=== PATIENT | male | born 1935 | race Caucasian/White ===

== ENCOUNTER 2016-08-27 14:30 | Inpatient (IN) | payer MEDICARE, BC ==
[~2016-08-27] VITALS: Ht 177.8 cm; Wt 76.2 kg
--- NOTE | 2016-08-27 14:46 | NUR ---
PT TO ROOM FOR TREATMENT IN STABLE CONDITION
[2016-08-27] MEDS ORDERED: PLAVIX75 MG PO (15:04)
[2016-08-27] MEDS ORDERED: ATENOLOL25 MG PO (15:04)
[2016-08-27] MEDS ORDERED: LIPITOR40 M1 PO (15:05)
[2016-08-27] MEDS ORDERED: FINASTERIDE5 MG PO (15:05)
[2016-08-27] MEDS ORDERED: TAMSULOSIN HCL0.4 MG PO (15:06)
[2016-08-27] MEDS ORDERED: BENAZEPRIL20 M1 PO (15:06)
[2016-08-27] MEDS ORDERED: ISOSORB MONO30 MG PO (15:06)
[2016-08-27] MEDS ORDERED: MYCOPHENOLAT500 MG PO (15:07)
[2016-08-27] MEDS ORDERED: ASPIRIN81 MG PO (15:07)
[2016-08-27] MEDS ORDERED: AMLODIPINE5 MG PO (15:08)
[2016-08-27] MEDS ORDERED: FOSAMAX PLUS PO (15:13)
[2016-08-27 15:20] LABS: ALBUMIN 4.3 g/dL (3.2-5.0); BILIRUBIN, TOTAL 0.9 mg/dL (0.0-1.4); CALCIUM 9.1 mg/dL (8.4-10.2); CREATININE 1.7 mg/dL (0.7-1.3); POTASSIUM 4.5 mmol/l (3.5-5.1); TOTAL PROTEIN 7.2 g/dL (6.3-8.2)
[2016-08-27 15:23] LABS: HEMATOCRIT 36.4 % (39.0-50.0); HEMOGLOBIN 11.9 g/dl (14.0-18.0); IMMATURE GRANULOCYTES 0.4 % (0.0-1.0); MEAN CELL VOLUME 87.9 fL CALC (80.0-100.0); MEAN CORPUSCULAR HGB 28.7 pG CALC (26.0-32.0); MEAN CORPUSCULAR HGB CONC 32.7 g/L CALC (32.0-36.0); NEUT# 5.13 thou/uL (1.82-7.42); RED BLOOD COUNT 4.14 mill/uL (4.70-6.10); RED CELL DISTRI WIDTH 15.1 % (11.5-15.5)
--- NOTE | 2016-08-27 15:40 | NUR ---
PT CONTINUES TO REST QUIETLY ON STRETCHER. AT BEDSIDE. NO RESP. DISTRESS NOTED. RESP. EVEN AND UNLABORED. CALL LIGHT WITHIN REACH.
--- NOTE | 2016-08-27 16:30 | NUR ---
PT CONTINUES TO REST QUIETLY, REMAINS AT BEDSIDE. NO RESP. DISTRESS NOTED. CALL LIGHT WITHIN REACH.
--- NOTE | 2016-08-27 17:05 | NUR ---
PT STATES "IV IS BURINING", IV SITE INFILTRATED, IV CATHETER REMOVED, DRESSING APPLIED. NEW SITE IN RAC. IV FLUIDS CONNECTED TO INFUSE PER MD'S ORDER. REMAINS AT BEDSIDE. NO CHANGE IN ASSESSMENT. PT STATES HE DOES NOT HAVE PAIN LONG HE LAYS STILL. WILL CONTINUE TO MONITOR. CALL LIGHT WITHIN REACH.
--- NOTE | 2016-08-27 18:15 | NUR ---
INFORMED PT THAT HE WILL BE GOING FOR A CT SCAN OF THE ABD. PT VERBALIZED UNDERSTANDING OF TEACHING. REMAINS AT BEDSIDE. NO RESP. DISTRESS NOTED. RESP EVEN AND UNLABORED. WAITING FURTHER TESTING. CALL LIGHT WITHIN REACH.
[2016-08-27 18:17] LABS: URINE BILIRUBIN - DIPSTICK NEGATIVE (NEGATIVE); URINE BLOOD DIPSTICK LARGE (NEGATIVE); URINE COLOR YELLOW; URINE GLUCOSE - DIPSTICK NEGATIVE (NEGATIVE); URINE KETONE NEGATIVE (NEGATIVE); URINE LEUK ESTERASE TRACE (NEGATIVE); URINE NITRITE - DIPSTICK NEGATIVE (Negative); URINE PROTEIN - DIPSTICK TRACE mg/dL (NEG-TRACE); URINE SPECIFIC GRAVITY 1.025; URINE UROBILINOGEN - DIPSTICK 0.2 E.U./dL (0.2)
[2016-08-27 18:24] LABS: URINE CLARITY SLIGHT CLOUDY
[2016-08-27 18:26] LABS: URINE RBC 25-50 RBC/hpf (0-5)
--- NOTE | 2016-08-27 18:46 | NUR ---
REPORT GIVEN TO DEJAH PANIAGUA.
--- NOTE | 2016-08-27 18:47 | NUR ---
RECEIVED REPORT FROM DEJAH WHITEHEAD AND UPDATED PT AND ON PLAN OF CARE. PT STILL WAITING CT ABD/PELVIS
[2016-08-27 19:49] LABS: MYOGLOBIN 107 ng/mL (0 - 121)
--- NOTE | 2016-08-27 19:50 | NUR ---
DR MORRIS IN TO RE-EVALUATE PT.
--- NOTE | 2016-08-27 20:17 | NUR ---
Admission Note Report Given to: DEJAH KOLB Transported by: X Wheelchair Stretcher Transported with: X Nurse Transporter Patent IV [id number] Sheet Rock Hanger
--- NOTE | 2016-08-27 20:17 | NUR ---
REPORT GIVEN TO CORTES
--- NOTE | 2016-08-27 20:30 | NUR ---
PATIENT ARRIVED TO THE FLOOR FROM THE ED VIA WHEELCHAIR ACCOMPANIED BY SPOUSE AND ED NURSE. ORIENTATE PATIENT TO ROOM AND CALL LIGHT SYSYEM. DENIES PAIN. CALL LIGHT IN REACH, BED LOCKED AND IN LOW POSITION. ADVISED PATIENT TO CALL FOR ASSISTANCE IF NEEDED. PATIENT VERBALIZED UNDERSTANDING.
[2016-08-27 21:00] VITALS: BP 112/67
--- NOTE | 2016-08-28 | NUR ---
PATIENT IS RESTING COMFORTABLY WITH EYES CLOSED AND APPEARS NOT TO BE IN ANY APPARENT DISTRESS.
[2016-08-28 04:00] VITALS: BP 109/54
[2016-08-28 05:15] LABS: ANION GAP 14 (6-22 (CALC)); BUN 27 mg/dL (8-23); BUN/CREATININE RATIO 21 (12-20 (CALC)); CALCIUM 8.8 mg/dL (8.4-10.2); CARBON DIOXIDE 24 mmol/l (22-30); CHLORIDE 106 mmol/l (95-108); CREATININE 1.3 mg/dL (0.7-1.3); GFR 53 ML/MIN (>=60 (CALC)); GFR FOR AFR.AMER. > 60 ML/MIN (>=60 (CALC)); GLUCOSE 95 mg/dL (82-115); MAGNESIUM 1.8 mg/dL (1.6-2.3); POTASSIUM 3.8 mmol/l (3.5-5.1); SODIUM 140 mmol/l (137-146)
[2016-08-28 07:11] VITALS: BP 117/67
--- NOTE | 2016-08-28 07:27 | NUR ---
PT IN SUPINE POSITION; C/O MID ABD PRESSURE, DOES NOT WANT PAIN MED AT THIS TIME; ENCOURAGE USE OF CALL LIGHT IF ANY ASSISTANCE IS NEEDED; WILL CONTINUE TO MONITOR.
--- NOTE | 2016-08-28 08:10 | NUR ---
PT IN CHAIR TALKING ON PHONE; TOLERATING CLEAR LIQ DIET WELL; CALL JOE WITHIN REACH; WILL CONTINUE TO MONITOR.
--- NOTE | 2016-08-28 11:56 | NUR ---
PT SITTING IN CHAIR VISITING WITH SPOUSE; NO COMPLAINTS OR CONCERNS VOICED; CALL JOE WITHIN REACH; WILL CONTINUE TO MONITOR.
--- NOTE | 2016-08-28 14:49 | NUR ---
Patient has recieved PPSV23 vaccine 02/18/12. Pt is >67 years old and >1 year has passed since he received the PPSV23. Pt is eligible for PCV13 vaccine. Counseled patient on the purpose of PCV13. Order has been placed for PCV13 vaccine. Patient did not have any questions regarding vaccine or any other medications. Patient will call pharmacy if any future questions arise.
[2016-08-28 15:33] LABS: C. DIFFICILE TOXIN A&B NEGATIVE (NEGATIVE)
[2016-08-28 15:54] VITALS: BP 105/57
[2016-08-28 19:20] VITALS: BP 103/54
--- NOTE | 2016-08-28 19:41 | NUR ---
PATIENT SITTING UP IN RECLINER WITH AT SIDE. PATIENT IS ALERT AND ORIENTEDX3. PATIENT WITH NO COMPLAINTS AT THIS TIME. PATIENT STATES THAT HE ATE SOLIDS TONIGHT FOR DINNER AND TOLERATED THAT WELL SO FAR. PATIENT WITH IV SITE TO LEFT AC WITH IVF D5LR PATENT AND INFUSING AT 125CC/HR. SITE APPEARS HEALTHY AT THIS TIME. 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 ABD IS SOFT WITH BS PRESENT. LUNGS ARE CLEAR. SAFETY PRECAUTIONS REINFORCED. CALL LIGHT IN REACH. WILL CONT TO MONITOR.
--- NOTE | 2016-08-28 19:41 | NUR ---
PATIENT SITTING UP IN RECLINER WITH AT SIDE. PATIENT IS ALERT AND ORIENTEDX3. NO COMPLAINTS AT THIS TIME. PATIENT STATES THAT ATE SOLIDS FOR DINNER AND TOLERATED THAT WELL SO FAR, PATIENT WITH IV SITE TO LEFT AC WITH IVF D5LR PATENT AND INFUISNG AT 100CC/HR. SITE APPEARS HEALTHY AT THIS TIME. PATIENT WITH COLOSTOMY WHICH HE DOES SELF CARE AND STATES THAT HIS STOOLS HAVE CONT TO BE BROWN AND WATERY. ABD IS SLIGHTLY DISTENDED WITH BS PRESENT. LUNGS ARE CLEAR. SAFETY PRECAUTIONS REINFORCED. CALL LIGHT IN REACH. WILL CONT TO MONITOR.
--- NOTE | 2016-08-28 23:46 | NUR ---
PATIENT RESTING IN BED AT THIS TIME WITH NO COMPLAINTS. IVF PATENT AND INFUSING AT 125CC/HR ORDERED. CALL LIGHT IN REACH. WILL CONT TO AMY.
--- NOTE | 2016-08-28 23:53 | NUR ---
PATIENT RESTING IN BED AT THIS TIME WITH NO COMPLAINTS. CALL LIGHT IN REACH. WILL CONT TO MONITOR.
[2016-08-29 03:47] VITALS: BP 126/61
--- NOTE | 2016-08-29 03:48 | NUR ---
PATIENT RESTING IN BED AT THIS TIME WITH NO COMPLAINTS. VS TAKEN AND RECORDED. IVF ORDERED AT 100CC/HR. CALL LIGHT IN REACH. WILL CONT TO MONITOR.
[2016-08-29 05:16] LABS: HEMATOCRIT 30.2 % (39.0-50.0); HEMOGLOBIN 10.1 g/dl (14.0-18.0); IMMATURE GRANULOCYTES 0.6 % (0.0-1.0); MEAN CORPUSCULAR HGB 29.1 pG CALC (26.0-32.0); MEAN CORPUSCULAR HGB CONC 33.4 g/L CALC (32.0-36.0); NEUT# 3.15 thou/uL (1.82-7.42); RED BLOOD COUNT 3.47 mill/uL (4.70-6.10); RED CELL DISTRI WIDTH 14.6 % (11.5-15.5)
[2016-08-29 05:27] LABS: ANION GAP 14 (6-22 (CALC)); BUN 16 mg/dL (8-23); BUN/CREATININE RATIO 13 (12-20 (CALC)); CALCIUM 8.8 mg/dL (8.4-10.2); CARBON DIOXIDE 24 mmol/l (22-30); CHLORIDE 106 mmol/l (95-108); CREATININE 1.2 mg/dL (0.7-1.3); GFR 58 ML/MIN (>=60 (CALC)); GFR FOR AFR.AMER. > 60 ML/MIN (>=60 (CALC)); GLUCOSE 99 mg/dL (82-115); POTASSIUM 3.8 mmol/l (3.5-5.1); SODIUM 141 mmol/l (137-146)
--- NOTE | 2016-08-29 07:05 | NUR ---
REPORT RECEIVED FROM DEJAH RAVI; PT SITTING IN CHAIR; IVF INFUSING WITHOUT DIFFICULTY; TELE MONITOR IN PLACE; CALL JOE WITHIN REACH; WILL CONTINUE TO MONITOR.
[2016-08-29 07:45] VITALS: BP 146/81
--- NOTE | 2016-08-29 09:00 | NUR ---
DR. JON IN TO SEE PT; PLAN OF CARE DISCUSSED
[2016-08-29] MEDS ORDERED: TRAMADOL HCL50 MG PO (09:05)
[2016-08-29] MEDS ORDERED: FLORASTOR250 M1 PO (09:05)
--- NOTE | 2016-08-29 10:33 | NUR ---
Reviewed medications with patient. Patient's was also present during the pharmacy visit with patient. Neither patient or his had any questions or concerns regarding medications. Will call pharmacy if any future questions arise.
--- NOTE | 2016-08-29 11:10 | NUR ---
Discharge instructions given. Patient verbalizes understanding of same. Discharged in stable condition via Wheelchair to Home with family. All belongings sent with pt.
== END 2016-08-29 11:10 | disposition home or self-care (01) | DRG 684 ==
LOC: ENPENDDIS → ED 14:30 → ED-I 19:40 → ED 20:00 → MS2 20:01
PROVIDERS: Emergency Medicine; Internal Medicine; ADMIT Internal Medicine; ATTEND Internal Medicine
DX: N17.9 Acute kidney failure, unspecified (principal); E86.0 Dehydration; J43.9 Emphysema, unspecified; I10 Essential (primary) hypertension; E78.5 Hyperlipidemia, unspecified; K52.9 Noninfective gastroenteritis and colitis, unspecified; R10.33 Periumbilical pain; Z87.442 Personal history of urinary calculi; Z93.3 Colostomy status; Z85.038 Personal history of other malignant neoplasm of large intestine; Z95.1 Presence of aortocoronary bypass graft
CPT/HCPCS: G0378

== ENCOUNTER → 2018-05-05 | Outpatient (REF) | payer MEDICARE, BC ==
[~2018-05-05] MED LIST: AMLODIPINE5 MG PO; ASPIRIN81 MG PO; ATENOLOL25 MG PO; BENAZEPRIL20 M1 PO; FINASTERIDE5 MG PO; FLORASTOR250 M1 PO; FOSAMAX PLUS PO; ISOSORB MONO30 MG PO; LIPITOR40 M1 PO; MYCOPHENOLAT500 MG PO; PLAVIX75 MG PO; TAMSULOSIN HCL0.4 MG PO; TRAMADOL HCL50 MG PO
== END | disposition home or self-care (01) ==
LOC: BD 14:29
PROVIDERS: ATTEND Dermatology
DX: M81.0 Age-related osteoporosis without current pathological fracture (principal); Z79.899 Other long term (current) drug therapy

== ENCOUNTER → 2018-05-29 | Outpatient (REF) | payer MEDICARE, BC ==
[2018-05-29 13:34] LABS: HEMATOCRIT 41.1 % (39.0-50.0); HEMOGLOBIN 13.5 g/dl (14.0-18.0); IMMATURE GRANULOCYTES 0.3 % (0.0-5.0); MEAN CELL VOLUME 90.5 fL CALC (80.0-100.0); MEAN CORPUSCULAR HGB 29.7 pG CALC (26.0-32.0); MEAN CORPUSCULAR HGB CONC 32.8 g/L CALC (32.0-36.0); NEUT# 4.19 thou/uL (1.82-7.42); RED BLOOD COUNT 4.54 mill/uL (4.70-6.10); RED CELL DISTRI WIDTH 14.2 % (11.5-15.5)
[2018-05-29 14:12] LABS: ALBUMIN 4.4 g/dL (3.2-5.0); ALKALINE PHOSPHATASE 67 u/l (38-126); ANION GAP 14 (6-22 (CALC)); BILIRUBIN, TOTAL 1.1 mg/dL (0.0-1.4); BUN 14 mg/dL (8-23); BUN/CREATININE RATIO 13 (12-20 (CALC)); CARBON DIOXIDE 27 mmol/l (22-30); CHLORIDE 103 mmol/l (95-108); CREATININE 1.1 mg/dL (0.7-1.3); GFR > 60 ML/MIN (>=60 (CALC)); GFR FOR AFR.AMER. > 60 ML/MIN (>=60 (CALC)); POTASSIUM 4.1 mmol/l (3.5-5.1); SGOT/AST 23 u/l (19-48); SODIUM 139 mmol/l (137-146); TOTAL PROTEIN 6.9 g/dL (6.3-8.2)
== END | disposition home or self-care (01) ==
LOC: LAB 12:52
PROVIDERS: ATTEND Internal Medicine Hematology & Oncology
DX: D64.9 Anemia, unspecified (principal); C18.9 Malignant neoplasm of colon, unspecified; Z79.899 Other long term (current) drug therapy

== ENCOUNTER 2022-01-05 07:54 | Day surgery (SDC) | payer MEDICARE, BC ==
[~2022-01-05] VITALS: Ht 177.8 cm; Wt 74.8 kg
[~2022-01-05 07:54] MED LIST changes: +ALBUTEROL SUL0.083 % IN; +CARBAMAZEPIN200 MG PO; +FERROUS FUM324 MG PO; +FOLIC ACID1 MG PO; +GABAPENTIN100 MG PO; +IPRATROPIU0.5 MG/3 M IN; +LEFLUNOMIDE10 MG PO; +MEGESTROL AC20 MG PO; +METHOTREXATE S2.5 MG PO; +PREDNISONE5 MG PO; +PREVALITE4 G1 PO; +TRELEGY ELLIPTA1 AER IN
[2022-01-05 14:48] VITALS: BP 174/80
== END 2022-01-05 15:05 | disposition home or self-care (01) ==
LOC: ORM 07:54
PROVIDERS: ATTEND Urology
PROC: 0VB08ZZ Excision of Prostate, Via Natural or Artificial Opening Endoscopic (ICD-10-PCS; principal; 2022-01-05)
DX: N40.1 Benign prostatic hyperplasia with lower urinary tract symptoms (principal); R39.15 Urgency of urination; R35.0 Frequency of micturition; R35.1 Nocturia; N39.498 Other specified urinary incontinence; N13.8 Other obstructive and reflux uropathy; E78.00 Pure hypercholesterolemia, unspecified; J44.9 Chronic obstructive pulmonary disease, unspecified; I10 Essential (primary) hypertension; I25.10 Atherosclerotic heart disease of native coronary artery without angina pectoris; H40.059 Ocular hypertension, unspecified eye; Z87.891 Personal history of nicotine dependence; Z87.440 Personal history of urinary (tract) infections
CPT/HCPCS: J1956

== ENCOUNTER 2022-09-10 09:59 | Observation (INO) | payer MEDICARE, BC ==
[~2022-09-10] VITALS: Ht 177.8 cm; Wt 54.4 kg
[2022-09-10] VITALS (23 sets, daily range): BP systolic 130–180; BP diastolic 65–84
[~2022-09-10 09:59] MED LIST changes: -FERROUS FUM324 MG PO; +FERROUS SULF325 M3 PO
[2022-09-10 10:34] LABS: BASO% 0.1 % (0-3); EOS% 1.5 % (0-8); IMMATURE GRANULOCYTES 1.5 % (0.0-5.0); LYMPH% 5.4 % (15-41); MEAN CELL VOLUME 94.6 fL CALC (80.0-100.0); MEAN CORPUSCULAR HGB 29.1 pG CALC (26.0-32.0); MEAN CORPUSCULAR HGB CONC 30.8 g/dL CAL (32.0-36.0); MONO% 6.6 % (2-13); NEUT# 5.81 thou/uL (1.82-7.42); NEUT% 84.9 % (42-76); RED BLOOD COUNT 3.16 mill/uL (4.70-6.10); RED CELL DISTRI WIDTH 19.7 % (11.5-15.5)
[2022-09-10 10:36] LABS: HEMATOCRIT 29.9 % (39.0-50.0); HEMOGLOBIN 9.2 g/dl (14.0-18.0)
[2022-09-10] MEDS ORDERED: AMLODIPINE BES2.5 MG PO (10:44)
[2022-09-10 10:59] LABS: ALBUMIN 3.2 g/dL (3.2-5.0); ALKALINE PHOSPHATASE 77 u/l (38-126); ANION GAP 7 (6-22 (CALC)); BILIRUBIN, TOTAL 0.8 mg/dL (0.2-1.3); BUN 15 mg/dL (8-23); BUN/CREATININE RATIO 17 (12-20 (CALC)); CARBON DIOXIDE 29 mmol/l (22-30); CHLORIDE 99 mmol/l (95-108); CREATININE 0.9 mg/dL (0.7-1.3); GFR FOR AFR.AMER. > 60 ML/MIN (>=60 (CALC)); GFR OTHER RACES > 60 ML/MIN (>=60 (CALC)); POTASSIUM 3.6 mmol/l (3.5-5.1); SGOT/AST 43 u/l (19-48)
[2022-09-10 11:04] LABS: SODIUM 131 mmol/l (137-146)
[2022-09-10] MEDS ORDERED: DEXAMETHASON6 MG PO (15:20)
[2022-09-10] MEDS ORDERED: FOSAMAX PLUS PO (15:23)
[2022-09-10] MEDS ORDERED: PREVALITE4 G1 PO (15:24)
[2022-09-11] VITALS (11 sets, daily range): BP systolic 143–169; BP diastolic 68–80
[2022-09-11 03:21] LABS: URINE BILIRUBIN - DIPSTICK NEGATIVE (NEGATIVE); URINE BLOOD DIPSTICK NEGATIVE (NEGATIVE); URINE COLOR YELLOW; URINE GLUCOSE - DIPSTICK NEGATIVE (NEGATIVE); URINE KETONE NEGATIVE (NEGATIVE); URINE LEUK ESTERASE NEGATIVE (NEGATIVE); URINE NITRITE - DIPSTICK NEGATIVE (Negative); URINE PH 6.5 (4.5-8.0); URINE PROTEIN - DIPSTICK 30 mg/dL (NEG-TRACE); URINE UROBILINOGEN - DIPSTICK 0.2 E.U./dL (0.2)
[2022-09-11 03:29] LABS: URINE BACTERIA FEW hpf; URINE EPITHELIAL CELLS FEW EPI/hpf (0-FEW); URINE MUCUS FEW hpf (NONE-FEW); URINE RBC 0-2 RBC/hpf (0-5)
[2022-09-11 07:01] LABS: BASO% 0.2 % (0-3); HEMATOCRIT 24.9 % (39.0-50.0); HEMOGLOBIN 7.7 g/dl (14.0-18.0); IMMATURE GRANULOCYTES 1.1 % (0.0-5.0); LYMPH% 7.4 % (15-41); MEAN CELL VOLUME 94.3 fL CALC (80.0-100.0); MEAN CORPUSCULAR HGB 29.2 pG CALC (26.0-32.0); MEAN CORPUSCULAR HGB CONC 30.9 g/dL CAL (32.0-36.0); MONO% 4.8 % (2-13); NEUT# 4.64 thou/uL (1.82-7.42); NEUT% 86.5 % (42-76); RED BLOOD COUNT 2.64 mill/uL (4.70-6.10); RED CELL DISTRI WIDTH 19.4 % (11.5-15.5)
[2022-09-11 07:33] LABS: ALKALINE PHOSPHATASE 67 u/l (38-126); ANION GAP 6 (6-22 (CALC)); BUN 16 mg/dL (8-23); BUN/CREATININE RATIO 22 (12-20 (CALC)); CARBON DIOXIDE 26 mmol/l (22-30); CHLORIDE 104 mmol/l (95-108); CREATININE 0.7 mg/dL (0.7-1.3); GFR FOR AFR.AMER. > 60 ML/MIN (>=60 (CALC)); GFR OTHER RACES > 60 ML/MIN (>=60 (CALC)); POTASSIUM 3.8 mmol/l (3.5-5.1); SGOT/AST 29 u/l (19-48); SODIUM 132 mmol/l (137-146)
[2022-09-11 07:38] LABS: ALBUMIN 2.3 g/dL (3.2-5.0); BILIRUBIN, TOTAL 0.4 mg/dL (0.2-1.3); TOTAL PROTEIN 4.4 g/dL (6.3-8.2)
[2022-09-11] MEDS ORDERED: VENTOLIN HFA108 MCG IN (18:25)
[2022-09-12] VITALS (7 sets, daily range): BP systolic 155–185; BP diastolic 64–85
[2022-09-12 09:01] LABS: BASO% 0.2 % (0-3); EOS% 0.1 % (0-8); IMMATURE GRANULOCYTES 1.3 % (0.0-5.0); LYMPH% 7.2 % (15-41); MEAN CELL VOLUME 92.6 fL CALC (80.0-100.0); MEAN CORPUSCULAR HGB 28.8 pG CALC (26.0-32.0); MEAN CORPUSCULAR HGB CONC 31.2 g/dL CAL (32.0-36.0); MONO% 5.9 % (2-13); NEUT# 7.8 thou/uL (1.82-7.42); NEUT% 85.3 % (42-76); RED BLOOD COUNT 3.64 mill/uL (4.70-6.10)
[2022-09-12 09:25] LABS: HEMATOCRIT 33.7 % (39.0-50.0); HEMOGLOBIN 10.5 g/dl (14.0-18.0)
[2022-09-12 09:30] LABS: ALBUMIN 2.6 g/dL (3.2-5.0); ALKALINE PHOSPHATASE 72 u/l (38-126); ANION GAP 7 (6-22 (CALC)); BUN 13 mg/dL (8-23); BUN/CREATININE RATIO 18 (12-20 (CALC)); CARBON DIOXIDE 28 mmol/l (22-30); CHLORIDE 103 mmol/l (95-108); CREATININE 0.7 mg/dL (0.7-1.3); GFR FOR AFR.AMER. > 60 ML/MIN (>=60 (CALC)); GFR OTHER RACES > 60 ML/MIN (>=60 (CALC)); POTASSIUM 3.6 mmol/l (3.5-5.1); SGOT/AST 36 u/l (19-48); SODIUM 134 mmol/l (137-146); TOTAL PROTEIN 4.8 g/dL (6.3-8.2)
[2022-09-12 09:33] LABS: BILIRUBIN, TOTAL 0.7 mg/dL (0.2-1.3)
[2022-09-13 04:59] VITALS: BP 179/81
[2022-09-13 05:34] LABS: HEMATOCRIT 33.1 % (39.0-50.0); HEMOGLOBIN 10.4 g/dl (14.0-18.0); MEAN CORPUSCULAR HGB 29.2 pG CALC (26.0-32.0); MEAN CORPUSCULAR HGB CONC 31.4 g/dL CAL (32.0-36.0); RED BLOOD COUNT 3.56 mill/uL (4.70-6.10); RED CELL DISTRI WIDTH 18.6 % (11.5-15.5)
[2022-09-13 05:58] LABS: ALBUMIN 2.3 g/dL (3.2-5.0); ALKALINE PHOSPHATASE 67 u/l (38-126); ANION GAP 7 (6-22 (CALC)); BILIRUBIN, TOTAL 0.5 mg/dL (0.2-1.3); BUN 14 mg/dL (8-23); BUN/CREATININE RATIO 19 (12-20 (CALC)); CARBON DIOXIDE 26 mmol/l (22-30); CHLORIDE 104 mmol/l (95-108); CREATININE 0.7 mg/dL (0.7-1.3); GFR FOR AFR.AMER. > 60 ML/MIN (>=60 (CALC)); GFR OTHER RACES > 60 ML/MIN (>=60 (CALC)); MAGNESIUM 2.1 mg/dL (1.6-2.3); POTASSIUM 3.8 mmol/l (3.5-5.1); SGOT/AST 33 u/l (19-48); SODIUM 132 mmol/l (137-146); TOTAL PROTEIN 4.5 g/dL (6.3-8.2)
[2022-09-13 06:53] VITALS: BP 191/91
[2022-09-13 10:30] VITALS: BP 165/77
[2022-09-13] MEDS ORDERED: TRAMADOL HCL50 MG PO (10:43)
[2022-09-13] MEDS ORDERED: BENAZEPRIL20 M1 PO (10:43)
[2022-09-13] MEDS ORDERED: TAMSULOSIN HCL0.4 MG PO (10:44)
[2022-09-13] MEDS ORDERED: FINASTERIDE5 MG PO (10:45)
[2022-09-13] MEDS ORDERED: ZITHROMAX250 MG PO (10:46)
[2022-09-13 11:33] VITALS: BP 165/77
== END 2022-09-13 13:54 ==
LOC: ED 09:59 → ED-I 11:18 → ED 13:36 → MS2 13:37 → UNDODEPER 09-14 13:23
PROVIDERS: Family Medicine; Nurse Practitioner Family; ADMIT Internal Medicine; ATTEND Internal Medicine
PROC: 30233N1 Transfusion of Nonautologous Red Blood Cells into Peripheral Vein, Percutaneous Approach (ICD-10-PCS; principal; 2022-09-11)
DX: U07.1 COVID-19 (principal); J12.82 Pneumonia due to coronavirus disease 2019; D64.9 Anemia, unspecified; L10.2 Pemphigus foliaceous; I10 Essential (primary) hypertension; I25.10 Atherosclerotic heart disease of native coronary artery without angina pectoris; J43.9 Emphysema, unspecified; E78.5 Hyperlipidemia, unspecified; M19.90 Unspecified osteoarthritis, unspecified site; Z85.038 Personal history of other malignant neoplasm of large intestine; Z90.49 Acquired absence of other specified parts of digestive tract; Z79.52 Long term (current) use of systemic steroids; Z95.1 Presence of aortocoronary bypass graft; Z79.60 Long term (current) use of unspecified immunomodulators and immunosuppressants
CPT/HCPCS: J1650; P9016

== ENCOUNTER 2022-10-21 13:33 | Emergency (ER) | payer MEDICARE, BC ==
[~2022-10-21] VITALS: Ht 177.8 cm; Wt 64.0 kg
[2022-10-21] VITALS (16 sets, daily range): BP systolic 114–161; BP diastolic 56–112
[~2022-10-21 13:33] MED LIST changes: +AMLODIPINE BES2.5 MG PO; +DEXAMETHASON6 MG PO; +VENTOLIN HFA108 MCG IN; +ZITHROMAX250 MG PO
[2022-10-21 15:58] LABS: URINE BILIRUBIN - DIPSTICK NEGATIVE (NEGATIVE); URINE COLOR YELLOW; URINE GLUCOSE - DIPSTICK NEGATIVE (NEGATIVE); URINE KETONE TRACE mg/dL (NEGATIVE); URINE PROTEIN - DIPSTICK >=300 mg/dL (NEG-TRACE)
[2022-10-21 15:59] LABS: URINE BLOOD DIPSTICK MODERATE (NEGATIVE); URINE LEUK ESTERASE SMALL (NEGATIVE); URINE NITRITE - DIPSTICK NEGATIVE (Negative); URINE SQUAMOUS EPITHELIAL CELL FEW EPI/hpf (0-FEW); URINE UROBILINOGEN - DIPSTICK 0.2 E.U./dL (0.2); URINE WBC 50-100 WBC/hpf (0-5)
[2022-10-21] MEDS ORDERED: CIPROFLOXACN500 MG PO (16:38)
--- NOTE | 2022-10-23 08:59 | NUR ---
Pt was seen in ED with complaints of painful urination on 10/21/22. on 10/23/22 final urine culture shows pseudomonas aeruginosa at >100,000 cfu/mL with resistance to cipro. pt was discharged with cipro 500mg po BID x3 days to complete regiment. results faxed to PCP brook warren at [phone] at [facility], pt's alerted, PCP will f/u
== END 2022-10-21 16:50 ==
LOC: ED 13:33
PROVIDERS: Family Medicine
DX: N39.0 Urinary tract infection, site not specified (principal); B96.5 Pseudomonas (aeruginosa) (mallei) (pseudomallei) as the cause of diseases classified elsewhere; I10 Essential (primary) hypertension; I25.10 Atherosclerotic heart disease of native coronary artery without angina pectoris; J43.9 Emphysema, unspecified; Z99.3 Dependence on wheelchair; B02.29 Other postherpetic nervous system involvement; Z95.1 Presence of aortocoronary bypass graft

== ENCOUNTER 2022-10-27 19:03 | Emergency (ER) | payer MEDICARE, BC ==
[~2022-10-27] VITALS: Ht 177.8 cm; Wt 66.0 kg
[~2022-10-27 19:03] MED LIST changes: +CIPROFLOXACN500 MG PO
[2022-10-27 19:13] VITALS: BP 151/50
[2022-10-27 19:16] VITALS: BP 124/70
[2022-10-27 19:30] VITALS: BP 127/62
[2022-10-27 19:45] VITALS: BP 124/70
== END 2022-10-27 19:45 | disposition home or self-care (01) ==
LOC: ED 19:03
DX: K94.09 Other complications of colostomy (principal); I10 Essential (primary) hypertension; I25.10 Atherosclerotic heart disease of native coronary artery without angina pectoris; J43.9 Emphysema, unspecified; B02.29 Other postherpetic nervous system involvement; Y83.3 Surgical operation with formation of external stoma as the cause of abnormal reaction of the patient, or of later complication, without mention of misadventure at the time of the procedure; Z95.1 Presence of aortocoronary bypass graft

== ENCOUNTER 2022-11-01 18:06 | Observation (INO) | payer MEDICARE, BC ==
[2022-11-01] VITALS (9 sets, daily range): BP systolic 125–170; BP diastolic 65–80
[~2022-11-01] VITALS: Ht 177.8 cm; Wt 70.0 kg
[~2022-11-01 18:06] MED LIST changes: -AMLODIPINE BES2.5 MG PO; +AMLODIPINE BESYL5 MG PO; +ATORVASTATIN CA20 MG PO
--- NOTE | 2022-11-01 18:24 | NUR ---
PT TO ROOM 12 VIA W/C, CALL LIGHT IN REACH, PROVIDER NOTIFIED.
[2022-11-01 19:06] LABS: BASO% 0.1 % (0-3); HEMATOCRIT 30.7 % (39.0-50.0); HEMOGLOBIN 9.1 g/dl (14.0-18.0); IMMATURE GRANULOCYTES 1.2 % (0.0-5.0); LYMPH% 17.3 % (15-41); MEAN CELL VOLUME 88.5 fL CALC (80.0-100.0); MEAN CORPUSCULAR HGB 26.2 pG CALC (26.0-32.0); MEAN CORPUSCULAR HGB CONC 29.6 g/dL CAL (32.0-36.0); MONO% 5.7 % (2-13); NEUT# 6.93 thou/uL (1.82-7.42); NEUT% 73.7 % (42-76); RED BLOOD COUNT 3.47 mill/uL (4.70-6.10); RED CELL DISTRI WIDTH 18.5 % (11.5-15.5)
--- NOTE | 2022-11-01 19:12 | NUR ---
PT TO ROOM 12 VIA W/C, CALL LIGHT IN REACH, PROVIDER NOTIFIED.
[2022-11-01 19:16] LABS: ALKALINE PHOSPHATASE 56 u/l (38-126); ANION GAP 9 (6-22 (CALC)); BILIRUBIN, TOTAL 0.4 mg/dL (0.2-1.3); BUN 16 mg/dL (8-23); BUN/CREATININE RATIO 18 (12-20 (CALC)); CARBON DIOXIDE 26 mmol/l (22-30); CHLORIDE 105 mmol/l (95-108); CREATININE 0.9 mg/dL (0.7-1.3); GFR FOR AFR.AMER. > 60 ML/MIN (>=60 (CALC)); GFR OTHER RACES > 60 ML/MIN (>=60 (CALC)); POTASSIUM 3.8 mmol/l (3.5-5.1); SGOT/AST 25 u/l (19-48); SODIUM 136 mmol/l (137-146)
--- NOTE | 2022-11-01 19:18 | NUR ---
ASSUMED CARE OF PT. PT SUPINE IN BED, AIRWAY PATENT, RESP EVEN AND NON LABORED, SKIN P/W/D. SPOUSE AT BEDSIDE. NO ACUTE DISTRESS NOTED.
[2022-11-01 19:19] LABS: TOTAL PROTEIN 5.6 g/dL (6.3-8.2)
--- NOTE | 2022-11-01 19:36 | NUR ---
PT OOB WITH ASSIST X 2 NURSES TO OBTAIN URINE SPECIMEN. PT VOIDED APPROXIMATELY 50CC CLOUDY, YELLOW URINE. SPECIMEN SENT TO LAB FOR ANALYSIS. 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 DRESSING CLEAN, DRY, INTACT.
[2022-11-01 19:38] LABS: URINE BILIRUBIN - DIPSTICK Negative (NEGATIVE); URINE BLOOD DIPSTICK Trace-lysed (NEGATIVE); URINE GLUCOSE - DIPSTICK Negative (NEGATIVE); URINE KETONE Trace mg/dL (NEGATIVE); URINE NITRITE - DIPSTICK Negative (Negative); URINE PROTEIN - DIPSTICK 30 mg/dL (NEG-TRACE); URINE UROBILINOGEN - DIPSTICK 0.2 E.U./dL (0.2)
[2022-11-01 19:40] LABS: URINE COLOR Yellow; URINE LEUK ESTERASE Moderate (NEGATIVE)
[2022-11-01 19:48] LABS: URINE WBC TNTC WBC/hpf (0-5)
[2022-11-01] MEDS ORDERED: LISINOPRIL10 MG PO (19:56)
[2022-11-01] MEDS ORDERED: TRELEGY ELLIPTA1 AER IN (19:56)
[2022-11-01] MEDS ORDERED: NORVASC2.5 M1 PO (20:23)
--- NOTE | 2022-11-01 20:30 | NUR ---
PT WITH HOB ELEVATED, AIRWAY PATENT, RESP EVEN AND NON LABORED. SPOUSE AT BEDSIDE. NO COMPLAINTS VOICED AT THIS TIME.
--- NOTE | 2022-11-01 21:00 | NUR ---
ATTEMPTED TO CALL REPORT. NURSE WILL CALL BACK.
--- NOTE | 2022-11-01 21:05 | NUR ---
FAMILY NOTIFIED OF WAIT TIME. VOICES UNDERSTANDING.
--- NOTE | 2022-11-01 21:21 | NUR ---
REPORT TO FAUSTINO POND.
--- NOTE | 2022-11-01 21:25 | NUR ---
PT TO ICU VIA STRETCHER IN STABLE CONDITION.
--- NOTE | 2022-11-01 21:34 | NUR ---
87 yr old white male admitted as medsurg overflow to [facility] per stretcher. transferred self to bed. @ bedside. history obtained per pt, , er & old record. oriented to room. ivf began as ordered. bed alarm activated. fall precautions initiated.
[2022-11-02] VITALS (14 sets, daily range): BP systolic 117–205; BP diastolic 68–110
[2022-11-02 05:20] LABS: BASO% 0.1 % (0-3); HEMATOCRIT 30.2 % (39.0-50.0); HEMOGLOBIN 9.2 g/dl (14.0-18.0); IMMATURE GRANULOCYTES 1.1 % (0.0-5.0); LYMPH% 20.1 % (15-41); MEAN CORPUSCULAR HGB 26.8 pG CALC (26.0-32.0); MEAN CORPUSCULAR HGB CONC 30.5 g/dL CAL (32.0-36.0); MONO% 6.9 % (2-13); NEUT# 6.38 thou/uL (1.82-7.42); NEUT% 68.8 % (42-76); RED BLOOD COUNT 3.43 mill/uL (4.70-6.10); RED CELL DISTRI WIDTH 18.5 % (11.5-15.5)
[2022-11-02 05:26] LABS: ALBUMIN 3.1 g/dL (3.2-5.0); ALKALINE PHOSPHATASE 61 u/l (38-126); ANION GAP 11 (6-22 (CALC)); BILIRUBIN, TOTAL 0.5 mg/dL (0.2-1.3); BUN 11 mg/dL (8-23); BUN/CREATININE RATIO 16 (12-20 (CALC)); CARBON DIOXIDE 23 mmol/l (22-30); CHLORIDE 107 mmol/l (95-108); CREATININE 0.7 mg/dL (0.7-1.3); GFR FOR AFR.AMER. > 60 ML/MIN (>=60 (CALC)); GFR OTHER RACES > 60 ML/MIN (>=60 (CALC)); POTASSIUM 3.8 mmol/l (3.5-5.1); SGOT/AST 26 u/l (19-48); SODIUM 137 mmol/l (137-146); TOTAL PROTEIN 5.5 g/dL (6.3-8.2)
--- NOTE | 2022-11-02 08:00 | NUR ---
Patient lying in bed. Denies pain at this time. Male purewick placed, CDI. SR on the monitor. Lungs clear to ascultation. Colostomy bag in place. Bed in low position. Call light next to L hand. Will continue to monitor.
--- NOTE | 2022-11-02 12:11 | NUR ---
Patient off unit for PICC line placement. Yael contacted per to follow up on outpt abx at [facility].
--- NOTE | 2022-11-02 15:43 | NUR ---
Report given to Danilo.
--- NOTE | 2022-11-02 16:55 | NUR ---
RECEIVE REPORT FROM [facility] ICU NURSE. PATIENT IS TRANSFER FROM MED SURG. PT ALERT AND ORIENTED X3. PT ACCOMPANIED FOR HIS . PT IS EDUCATED ABOUD MEDICATIONS AND NURSING PLAN PT REFER UNDERSTAND. SAFETY AND FALL PRECAUTIONS IN PLACE. CALL LIGHT WITHIN IN REACH.
--- NOTE | 2022-11-02 20:00 | NUR ---
RECEIVED REPORT FROM NURSE FRANCK, PATIENT ALERT ORIENTED X 3 ABLE TO MAKE NEEDS KNOWN, CHRISTIANO SINGLE LUMEN PICC LINE, PATENT WITH BLOOD RFETURN AND IV ON LAC G 20 WITH NORMAL SALINE INFUSING AT 100CC/HR, COLOSTOMY WITH FORMED BROWN STOOL. PATIENT PLACED ON PUREWICK YELLOW COLORED URINE, COLOSTOMY BAG EMPTIED, CALL LIGHT IN REACH.
--- NOTE | 2022-11-03 | NUR ---
PATIENT RESTING IN BED,NOT IN DISTRTESS, BREATHING EVEN UNALABORED, CALL LIGHT IN REACH.
--- NOTE | 2022-11-03 04:33 | NUR ---
PATIENT RESTING IN BED, NOT IN DISTRESS, BREATHING EVEN UNLABORED, CALL LIGHT IN REACH.
[2022-11-03 05:09] VITALS: BP 155/83
--- NOTE | 2022-11-03 07:00 | NUR ---
RECEIVED BEDSIDE REPORT FROM DEJAH GOULD. PT RESTING IN BED WITH EYES CLOSED. ALL SAFETY MEASURES IN PLACE. VSS. NO NEEDS AT THIS TIME.
[2022-11-03 07:31] VITALS: BP 175/87
[2022-11-03 15:07] VITALS: BP 111/52
--- NOTE | 2022-11-03 17:53 | NUR ---
Discharge instructions given. Patient verbalizes understanding of same. Discharged in stable condition via Wheel[facility] to [facility] with spouse. All belongings sent with pt.
== END 2022-11-03 17:37 ==
LOC: ED 18:06 → ED-I 20:00 → ED 20:13 → ICU 20:14 → MS2 11-02 16:16
PROVIDERS: Family Medicine; Nurse Practitioner Family; ADMIT Internal Medicine; ATTEND Internal Medicine
PROC: 02HV33Z Insertion of Infusion Device into Superior Vena Cava, Percutaneous Approach (ICD-10-PCS; principal; 2022-11-02)
PROC: B548ZZA Ultrasonography of Superior Vena Cava, Guidance (ICD-10-PCS; 2022-11-02)
DX: N39.0 Urinary tract infection, site not specified (principal); B96.5 Pseudomonas (aeruginosa) (mallei) (pseudomallei) as the cause of diseases classified elsewhere; E86.0 Dehydration; I10 Essential (primary) hypertension; J43.9 Emphysema, unspecified; I25.10 Atherosclerotic heart disease of native coronary artery without angina pectoris; E78.5 Hyperlipidemia, unspecified; Z16.39 Resistance to other specified antimicrobial drug; Z85.038 Personal history of other malignant neoplasm of large intestine; Z95.1 Presence of aortocoronary bypass graft
CPT/HCPCS: G0378; J0692

== ENCOUNTER 2023-04-12 09:05 | Emergency (ER) | payer MEDICARE, BC ==
[2023-04-12] VITALS (23 sets, daily range): BP systolic 103–141; BP diastolic 57–83
[~2023-04-12] VITALS: Ht 177.8 cm; Wt 67.4 kg
[~2023-04-12 09:05] MED LIST changes: +LISINOPRIL10 MG PO; +NORVASC2.5 M1 PO
[2023-04-12] MEDS ORDERED: PREVALITE4 G1 PO (09:28)
[2023-04-12] MEDS ORDERED: FERROUS SULFAT325 MG PO (09:30)
[2023-04-12] MEDS ORDERED: GABAPENTIN400 M2 PO (09:30)
[2023-04-12] MEDS ORDERED: TENORMIN25 MG PO (09:34)
[2023-04-12] MEDS ORDERED: MEGESTROL AC20 MG PO (09:37)
[2023-04-12 10:05] LABS: BASO% 0.1 % (0-3); EOS% 0.6 % (0-8); IMMATURE GRANULOCYTES 1.1 % (0.0-5.0); LYMPH% 2.4 % (15-41); MEAN CELL VOLUME 86.9 fL CALC (80.0-100.0); MEAN CORPUSCULAR HGB 25.8 pG CALC (26.0-32.0); MEAN CORPUSCULAR HGB CONC 29.6 g/dL CAL (32.0-36.0); MONO% 2.6 % (2-13); NEUT# 10.7 thou/uL (1.82-7.42); NEUT% 93.2 % (42-76); RED BLOOD COUNT 2.29 mill/uL (4.70-6.10)
[2023-04-12 10:14] LABS: HEMATOCRIT 19.9 % (39.0-50.0); HEMOGLOBIN 5.9 g/dl (14.0-18.0)
[2023-04-12 10:18] LABS: ALBUMIN 2.9 g/dL (3.2-5.0); ALKALINE PHOSPHATASE 77 u/l (38-126); ANION GAP 9 (6-22 (CALC)); BILIRUBIN, TOTAL 0.5 mg/dL (0.2-1.3); BUN 14 mg/dL (8-23); BUN/CREATININE RATIO 17 (12-20 (CALC)); CARBON DIOXIDE 25 mmol/l (22-30); CHLORIDE 103 mmol/l (95-108); CREATININE 0.8 mg/dL (0.7-1.3); GFR FOR AFR.AMER. > 60 ML/MIN (>=60 (CALC)); GFR OTHER RACES > 60 ML/MIN (>=60 (CALC)); POTASSIUM 3.6 mmol/l (3.5-5.1); SGOT/AST 40 u/l (19-48); SODIUM 134 mmol/l (137-146); TOTAL PROTEIN 5.5 g/dL (6.3-8.2)
== END 2023-04-12 15:04 ==
LOC: ED 09:05
PROVIDERS: Emergency Medicine
PROC: 30233N1 Transfusion of Nonautologous Red Blood Cells into Peripheral Vein, Percutaneous Approach (ICD-10-PCS; principal; 2023-04-12)
PROC: 30233N1 Transfusion of Nonautologous Red Blood Cells into Peripheral Vein, Percutaneous Approach (ICD-10-PCS; 2023-04-12)
DX: D64.9 Anemia, unspecified (principal); R79.89 Other specified abnormal findings of blood chemistry; I10 Essential (primary) hypertension; I25.10 Atherosclerotic heart disease of native coronary artery without angina pectoris; E78.5 Hyperlipidemia, unspecified; Z95.1 Presence of aortocoronary bypass graft; Z85.038 Personal history of other malignant neoplasm of large intestine; Z93.3 Colostomy status
CPT/HCPCS: P9016